=== PATIENT | male | born 1995 | race Hispanic/Latino ===

== ENCOUNTER 2017-10-28 08:12 | Emergency (ER) | payer OTHER | END 2017-10-28 09:27 | disposition home or self-care (01) | LOC: M ED 08:12 | DX: S83.422A Sprain of lateral collateral ligament of left knee, initial encounter (principal); X50.9XXA Other and unspecified overexertion or strenuous movements or postures, initial encounter; Y92.59 Other trade areas as the place of occurrence of the external cause; Y99.1 Military activity; Y93.02 Activity, running; F17.210 Nicotine dependence, cigarettes, uncomplicated | CPT/HCPCS: 73564 ==